=== PATIENT | female | born 1965 | race Caucasian/White ===

== ENCOUNTER 2017-03-30 20:24 | Emergency (ER) | payer OTHER | END 2017-03-30 21:50 | disposition left against medical advice (07) | LOC: FER 20:24 | DX: R51 Headache (principal); W19.XXXA Unspecified fall, initial encounter; Z53.20 Procedure and treatment not carried out because of patient's decision for unspecified reasons ==

== ENCOUNTER 2017-03-31 08:49 | Emergency (ER) | payer OTHER ==
[2017-03-31 09:55] LABS: BASOPHIL 0.3 % (0-2); HCT 40.3 % (37.0-47.0); HGB 13.9 g/dl (12.5-16.0); LYMPHOCYTE 20.4 % (15-48); MCH 31.6 pg (25.0-31.0); MCHC 34.5 g/dL (32.0-36.0); MCV 91.6 fL (78.0-100.0); MONOCYTE 8.5 % (0-12); MPV 10.1 fL (6.0-9.5); NEUTROPHIL 69.8 % (41-80); PLT 347 K/uL (150-400); WBC 9.7 K/uL (4.0-10.5)
[2017-03-31 10:19] LABS: BILIRUBIN NEGATIVE (NEGATIVE); BLOOD 2+ Ery/uL (NEGATIVE); CLARITY CLEAR (CLEAR); COLOR YELLOW (YELLOW); GLUCOSE (U) NORMAL (NORMAL); KETONE (U) TRACE mg/dL (NEGATIVE); LEUKOCYTES NEGATIVE Leu/uL (NEGATIVE); NITRITE NEGATIVE (NEGATIVE); PROTEIN NEGATIVE (NEGATIVE)
[2017-03-31 10:23] LABS: ALBUMIN 4.8 g/dL (3.5-5.0); BILIRUBIN - TOTAL 0.9 mg/dL (0.1-1.0); CREATININE 0.8 mg/dL (0.5-1.0); GLOBULIN (CALCULATION) 2.6 g/dL (2.2-4.2); POTASSIUM 4.1 mmol/L (3.5-5.1); TOTAL PROTEIN 7.4 g/dL (6.4-8.3)
[2017-03-31 10:26] LABS: BACTERIA 1+
[2017-03-31 10:28] LABS: AMPHETAMINES NEGATIVE (NEGATIVE); BARBITURATES NEGATIVE (NEGATIVE); BENZODIAZEPINES NEGATIVE (NEGATIVE); COCAINE NEGATIVE (NEGATIVE); MARIJUANA (THC) NEGATIVE (NEGATIVE); METHADONE NEGATIVE (NEGATIVE); TRICYCLIC ANTIDEPRESSANT NEGATIVE (NEGATIVE)
== END 2017-03-31 12:52 | disposition home or self-care (01) ==
LOC: FER 08:49
PROVIDERS: Internal Medicine
DX: S00.03XA Contusion of scalp, initial encounter (principal); S60.012A Contusion of left thumb without damage to nail, initial encounter; Z23 Encounter for immunization; W19.XXXA Unspecified fall, initial encounter
CPT/HCPCS: 36415; 70450; 71020; 72040; 73140; 80053; 80305; 81001; 85025; 90471; 90715; G0480

== ENCOUNTER 2022-05-03 09:07 | Emergency (ER) | payer OTHER ==
[~2022-05-03 09:07] MED LIST: APTIOM600 MG PO; LEVAQUIN500 MG PO; METRONIDAZOLE500 MG PO; NORVASC5 MG PO
[2022-05-03 10:23] LABS: BASOPHIL 0.5 % (0-2); EOSINOPHIL 0.3 % (0-5); HCT 40.2 % (37.0-47.0); HGB 14.6 g/dl (12.5-16.0); LYMPHOCYTE 25.3 % (15-48); MCH 31.6 pg (25.0-31.0); MCHC 36.3 g/dL (32.0-36.0); MONOCYTE 10.5 % (0-12); MPV 8.7 fL (6.0-9.5); NEUTROPHIL 63.1 % (41-80); NRBC 0; PLT 330 K/uL (150-400); RBC 4.62 M/uL (4.20-5.40); WBC 3.8 K/uL (4.0-10.5)
[2022-05-03 10:38] LABS: BUN/CREAT RATIO (CALC) 10.6 RATIO; CREATININE 0.66 mg/dL (0.51-0.95); POTASSIUM 3.7 mmol/L (3.5-5.1)
[2022-05-03] MEDS ORDERED: ONDANSETRON ODT4 MG PO (10:50)
== END 2022-05-03 11:00 | disposition home or self-care (01) ==
LOC: FER 09:07
PROVIDERS: Emergency Medicine
DX: U07.1 COVID-19 (principal); I10 Essential (primary) hypertension
CPT/HCPCS: 36415; 71045; 80048; 85025